=== PATIENT | female | born 1965 | race Caucasian/White ===

== ENCOUNTER 2017-12-14 21:01 | Emergency (ER) | payer OTHER ==
[~2017-12-14] VITALS: Ht 162.6 cm; Wt 73.5 kg
[~2017-12-14 21:01] MED LIST: GLU500 PO; MOTRIN800 MG PO; NORCO1 TA2 PO
[2017-12-14 21:12] VITALS: Ht 162.6 cm; Wt 73.5 kg
[2017-12-14 23:45] VITALS: BP 133/66
== END 2017-12-14 23:45 | disposition home or self-care (01) ==
LOC: ED 21:01
DX: M17.11 Unilateral primary osteoarthritis, right knee (principal)
CPT/HCPCS: J1885

== ENCOUNTER 2020-05-03 12:03 | Emergency (ER) | payer OTHER | END 2020-05-03 13:00 | disposition left against medical advice (07) | LOC: ED 12:03 | DX: Z53.21 Procedure and treatment not carried out due to patient leaving prior to being seen by health care provider (principal) ==